=== PATIENT | female | born 2005 | race Caucasian/White ===

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

== ENCOUNTER 2025-04-18 21:45 | Emergency (ER) | payer MEDICAID, OTHER ==
[~2025-04-18] VITALS: Ht 162.6 cm; Wt 39.9 kg
[2025-04-18] MEDS ORDERED: DOXY100C5 PO (22:05)
[2025-04-18] MEDS ORDERED: CEPH500C2 PO (22:05)
[2025-04-18] MEDS ORDERED: DOXYCYCLINE HYCLATE 100 MG TABLET ONE (22:11)
[2025-04-18] MEDS: DOXYCYCLINE HYCLATE 100 MG TABLET PO ONE (22:14)
[2025-04-18] MEDS ORDERED: NEOMY/BACITRA/POLYMYXIN B OINT UD PACKET TP ONE (22:25)
[2025-04-18] MEDS: NEOMY/BACITRA/POLYMYXIN B OINT UD PACKET TP ONE (22:31)
[2025-04-18 22:41] VITALS: BP 90/60; TEMP 98; O2SAT 98
== END 2025-04-18 22:30 | disposition home or self-care (01) ==
LOC: ER 21:55
DX: L03.317 Cellulitis of buttock (principal); F41.9 Anxiety disorder, unspecified; F32.A Depression, unspecified
CPT/HCPCS: A4606; A4663